=== PATIENT | female | born 1995 | race Caucasian/White ===

== ENCOUNTER 2017-02-11 22:20 | Emergency (ER) | payer OTHER ==
--- NOTE | 2017-02-11 23:13 | ED Physician Chart ---
Chief Complaint/HPI - Patient Information Date Seen:: 02/11/17 Time Seen:: 22:27 Chief Complaint:: Headache since about 4 pm today. History of Present Illness:: Pt has had intermittent bifrontal bandlike sharp or achy headache extending to back of scalp and neck since about 4 pm today. Pt had transient nausea. No vomiting. No fever. No mentation change. No visual changes in terms of blurry vision or diplopia. No weakness or numbness. No ataxia. Pt had similar headache in the past that resolved with analgesic. Pt has spent a lot of time in front of a computer screen prior to onset of her headache. Allergies:: Allergies Allergy/AdvReac Type Severity Reaction Status Date / Time No Known Allergies Allergy Verified 03/17/16 10:39 Vitals:: Vital Signs - 8 hr 02/11/17 22:21 Temp 98.8 F HR 94 RR 19 BP 137/73 O2 Sat % 100 Historian:: Patient Family MD/PCP:: Unknown LMP:: 01/20/17 Review:: Nurse's Note Reviewed Review of Systems - Review of Systems General/Constitutional: No fever, No chills, No weight loss, No weakness, No diaphoresis, No edema, No loss of appetite Skin: No skin lesions, No rash, No bruising Head: Headache Eyes: No loss of vision, No pain, No diplopia ENT: No earache, No nasal drainage, No sore throat, No tinnitus Neck: No neck pain, No swelling, No thyromegaly, No stiffness, No mass noted Cardio Vascular: No chest pain, No palpitations, No edema Pulmonary: No SOB, No cough, No sputum, No wheezing GI: Nausea (transient), No vomiting, No diarrhea, No pain G/U: No dysuria, No frequency, No hematuria Gas Controller: No vaginal discharge Musculoskeletal: No bone or joint pain, No back pain, No muscle pain Endocrine: No polyuria, No polydipsia Psychiatric: No prior psych history Hematopoietic: No bruising, No lymphadenopathy Neurological: No syncope, No focal symptoms, No weakness, No paresthesia, Headache, No seizure, No dizziness, No confusion, No vertigo Past Medical History - Past Medical History Past Medical History: No significant medical hx Family History: Diabetes Melitus (father) Social History: Non Smoker, No Alcohol, No Drug Use, Single, Lives With Parents , Employed Employment:: delivery coordinator Surgical History: None Psychiatricy History: None Medication: Reviewed Family Medical History - Family Member Grandmother History Unknown: Yes Ethnicity: Living Status: Still Living Hx Family Cancer: No Hx Family Coronary Artery Disease: No Hx Family Congestive Heart Failure: No Hx Family Hypertension: No Hx Family Stroke: No Hx Family Diabetes: No Hx Family Seizures: No Hx Family Dementia: No Hx Family AIDS: No Hx Family HIV: No Hx Family COPD: No Hx Family Hepatitis: No Hx Family Psychiatric Problems: No Hx Family Tuberculosis: No Father Hx Family Diabetes: Yes Physical Exam - Physical Examination General/Constitutional: Awake, Well-developed, well-nourished, Alert, No distress, GCS 15, Non-toxic appearing, Ambulatory Other Gen/Cons comments:: Breathes comfortably, speaks clearly, interacts normally, and ambulates without difficulty. Head: Atraumatic Eyes: Lids, conjuctiva normal, PERRL, EOMI Other Eyes comments:: Fundi: flat disks. Skin: Nl inspection, No rash, No skin lesions, No ecchymosis, Well hydrated, No lymphadenopathy ENMT: External ears, nose nl, TM canals nl, Nasal exam nl, Lips, teeth, gums nl , Oropharynx nl Neck: Nontender, Full ROM w/o pain, No JVD, No nuchal rigidity, No mass, No stridor Respiratory: Nl effort/Exclusion, Clear to Auscultation, No Wheeze/Rhonchi/Rales Cardio Vascular: RRR, No murmur, gallop, rubs GI: No tenderness/rebounding/guarding, No organomegaly, Normal BS's, Nondistended, No mass/bruits Other GI comments:: Obese but soft. Extremities: No tenderness or effusion, Full ROM, normal strength in all extremities, No edema, Normal digits & nails Neuro/Psych: Alert/oriented (oriented x 3), DTR's symmetric, Normal sensory exam , Normal motor strength, Judgement/insight normal, Mood normal, Normal gait, No focal deficits Other Neuro/Psych comments:: CN II to XII are grossly intact. Cerebellar exam ( F to N, TIAGO): normal. ED Septic Shock - . Is Septic Shock (SBP<90, OR Lactate>4 mmol\L) present?: No - <6hrs of presentation: Vital Signs: Vital Signs - 8 hr 02/11/ 22:21 Temp 98.8 F HR 94 RR 19 BP 137/73 O2 Sat % 100 Reassessment (Disposition) - Reassessment Reassessment:: 0010 Pt feels much better. DEJESUS has subsided. Pt requests to go home now and does not want further observation/management in hospital. Aftercare instructions have been given. Reassessment Condition:: Improved - Diagnosis Diagnosis:: Tension headache, stable and improved. - Aftercare/Follow up Instructions Aftercare/Follow-Up Instructions:: Refer to Discharge Instructions Notes:: Avoid neck bending activities. May take Motrin 200 mg tab 4 tabs by mouth every 8 hours as needed for pain, not to take first dose at least 6 hours after Toradol was given here. Headache instructions given. F/U with Dr. Sorensen or PCP of pt's choice in one day for recheck. Return to ER immediately if condition worsens or if any further questions/problems. Medication Prescribed:: None - Patient Disposition Discharge/Transfer:: Home Time:: 00:15 Condition at Disposition:: Stable, Improved
== END 2017-02-12 00:27 | disposition home or self-care (01) ==
LOC: ER 22:20
DX: G44.209 Tension-type headache, unspecified, not intractable (principal)
CPT/HCPCS: 99283; 96372; J1885; Z7502